=== PATIENT | female | born 1970 | race Caucasian/White ===

== ENCOUNTER 2019-10-08 12:51 | Emergency (ER) | payer SELFPAY ==
--- NOTE | 2019-10-08 13:54 | Emergency Department Report ---
Chief Complaint: Pain General Stated Complaint: PAIN ALL OVER/BODY PAIN Time Seen by Provider: 10/08/19 13:54 - HPI History of Present Illness: 48 y/o female with neuropathy moved here from [place] 3 months ago p/w 1) extremity pain 2) abd pain 3) left chest pressure llq tender labs ekg ua xr main side reassess MSE screening note: Focused history and physical exam performed. Due to findings the following was ordered: ED Disposition for MSE Condition: Stable
--- NOTE | 2019-10-08 14:40 | XRay Report ---
ABDOMINAL SERIES WITH CHEST X-RAY HISTORY: Abdominal pain, chest pain COMPARISON: None. FINDINGS: Single view of the chest is unremarkable. Heart and mediastinal structures appear normal. The lungs a re clear. Supine and upright views of the abdomen demonstrate amorphous calcifications overlying the expected p osition of the pancreas consistent with chronic pancreatitis. The bowel gas pattern is unremarkable. No evidence for dilated bowel, fluid levels or free air. IMPRESSION: Chronic pancreatitis. Signer Name: Haile Hadley Jr, MD Signed: 10/08/2019 2:35 PM Workstation Name: [id number]
[2019-10-08 17:02] LABS: Bilirubin,Urine NEG (Negative); Blood,Urine NEG (Negative); Color,Urine Yellow (Yellow); Mucus,Urine FEW /HPF; Urobilinogen,Urine < 2.0 mg/dL (<2.0); WBC,Urine < 1.0 /HPF (0.0-6.0)
[2019-10-08 17:41] LABS: Hematocrit 42.6 % (30.3-42.9); Hemoglobin 14.2 gm/dl (10.1-14.3); Mean Corpuscular HGB Conc 33 % (30-34); Mean Corpuscular Volume 93 fl (79-97); Platelet Count 165 K/mm3 (140-440); Red Blood Count 4.57 M/mm3 (3.65-5.03); Red Cell Distribution Width 13.4 % (13.2-15.2)
[2019-10-08 17:53] LABS: INR 1.13 (0.87-1.13)
[2019-10-08 18:05] LABS: Alanine Aminotransferase 73 units/L (7-56); Albumin 4.1 g/dL (3.9-5); BUN/Creatinine Ratio 16; Blood Urea Nitrogen 8 mg/dL (7-17); Calcium 10.7 mg/dL (8.4-10.2); Hemolysis Index 10
[2019-10-08] MEDS ORDERED: SODIUM CHLORIDE 0.9% 1000 ML 1,000 ML IV ONE ×2 (21:30→21:32)
--- NOTE | 2019-10-08 21:47 | Emergency Department Report ---
ED General Adult HPI - General Chief complaint: Pain General Stated complaint: PAIN ALL OVER/BODY PAIN Time Seen by Provider: 10/08/19 21:40 Source: patient Mode of arrival: Ambulatory Limitations: Language Barrier - History of Present Illness Initial comments: Patient is a 48-year-old female that presents to emergency with complaints of generalized body pain. Patient states that she's had diabetic neuropathy for years. Patient states that her neuropathy is worsening. Patient states she is not seeing a doctor for her diabetes because she just moved here from [place]. Patient states she feels like her blood glucose is high. Patient states that she is having increased urination. -: Gradual, week(s) (2 weeks) Location: upper extremity, lower extremity Radiation: non-radiation Severity scale (0 -10): 10 Quality: burning Consistency: constant Improves with: rest Worsens with: movement Associated Symptoms: malaise, weakness. denies: confusion, chest pain, cough, diaphoresis, fever/chills, headaches, loss of appetite, nausea/vomiting, rash, seizure, shortness of breath, syncope - Related Data Previous Rx's Medication Instructions Recorded Last Taken Type HYDROcodone/APAP 5-325 [Aurora 1 each PO Q4HR PRN #10 tablet 10/08/19 Unknown Rx 5/325] Allergies Allergy/AdvReac Type Severity Reaction Status Date / Time No Known Allergies Allergy Unverified 10/08/19 13:55 ED Review of Systems ROS: Stated complaint: PAIN ALL OVER/BODY PAIN Other details as noted in HPI Constitutional: malaise, weakness. denies: chills, fever Eyes: denies: eye pain, eye discharge, vision change ENT: denies: ear pain, throat pain Respiratory: denies: cough, shortness of breath, wheezing Cardiovascular: denies: chest pain, palpitations Endocrine: no symptoms reported Gastrointestinal: denies: abdominal pain, nausea, diarrhea Genitourinary: denies: urgency, dysuria, discharge Musculoskeletal: denies: back pain, joint swelling, arthralgia Skin: denies: rash, lesions Neurological: weakness. denies: headache, paresthesias Psychiatric: denies: anxiety, depression Hematological/Lymphatic: denies: easy bleeding, easy bruising ED Past Medical Hx - Past Medical History Previous Medical History?: Yes Hx Diabetes: Yes Additional medical history: neuropathy - Surgical History Past Surgical History?: No - Family History Family history: no significant - Social History Smoking Status: Current Every Day Smoker Substance Use Type: None - Medications Home Medications: Home Medications Medication Instructions Recorded Confirmed Last Taken Type HYDROcodone/APAP 5-325 [Aurora 1 each PO Q4HR PRN #10 tablet 10/08/19 Unknown Rx 5/325] ED Physical Exam - General Limitations: No Limitations General appearance: alert, in no apparent distress - Head Head exam: Present: atraumatic, normocephalic - Eye Eye exam: Present: normal appearance, PERRL Pupils: Present: normal accommodation - ENT ENT exam: Present: mucous membranes moist - Neck Neck exam: Present: normal inspection - Respiratory Respiratory exam: Present: normal lung sounds bilaterally. Absent: respiratory distress, wheezes, rales - Cardiovascular Cardiovascular Exam: Present: regular rate, normal rhythm. Absent: systolic murmur, diastolic murmur, rubs, gallop - GI/Abdominal GI/Abdominal exam: Present: soft, normal bowel sounds. Absent: distended, tenderness, guarding - Rectal Rectal exam: Present: deferred - Extremities Exam Extremities exam: Present: normal inspection - Back Exam Back exam: Present: normal inspection - Neurological Exam Neurological exam: Present: alert, oriented X3 - Psychiatric Psychiatric exam: Present: normal affect, normal mood - Skin Skin exam: Present: warm, dry, intact, normal color. Absent: rash ED Course Vital Signs 10/08/19 10/08/19 10/08/19 13:51 18:40 22:00 Temperature 97.7 F Pulse Rate 76 99 H 67 Respiratory 18 14 Rate Blood Pressure 121/82 Blood Pressure 117/80 118/78 [Right] O2 Sat by Pulse 100 100 Oximetry 10/08/19 10/08/19 22:05 23:50 Temperature Pulse Rate 68 Respiratory 14 18 Rate Blood Pressure Blood Pressure 127/81 [Right] O2 Sat by Pulse 100 99 Oximetry - Reevaluation(s) Reevaluation #1: Patient examined with nurse in the room, Nurse Reese. Patient will be given fluids and pain meds. 10/08/19 21:40 Reevaluation #2: Patient states she is feeling better. Patient states her pain has improved. Patient's blood sugar still elevated. Patient was given insulin and we will recheck the blood sugar. 10/08/19 23:00 Reevaluation #3: I discussed all results with patient. Patient denies weakness. Patient stable for discharge. I discussed plan of care the patient. Patient agrees with plan of care. I discussed discharge instructions with patient. Patient voiced understanding of discharge instructions. 10/08/19 23:50 ED Medical Decision Making - Lab Data Result diagrams: 10/08/19 17:17 10/08/19 17:17 - EKG Data -: EKG Interpreted by Me EKG shows normal: sinus rhythm, axis, intervals, QRS complexes, ST-T waves Rate: normal - Radiology Data Radiology results: report reviewed ABDOMINAL SERIES WITH CHEST X-RAY HISTORY: Abdominal pain, chest pain COMPARISON: None. FINDINGS: Single view of the chest is unremarkable. Heart and mediastinal structures appear normal. The lungs are clear. Supine and upright views of the abdomen demonstrate amorphous calcifications overlying the expected position of the pancreas consistent with chronic pancreatitis. The bowel gas pattern is unremarkable. No evidence for dilated bowel, fluid levels or free air. IMPRESSION: Chronic pancreatitis. - Medical Decision Making Patient is a 48-year-old female that presents with complaints of weakness, increased urination and neuropathy pain. Patient has a history of diabetic neuropathy. Patient and her pain improved. Patient given Aurora prescription. Patient labs are consistent with hyperglycemia and pseudohyponatremia. Patient given fluids in the ER. Patient's weakness resolved with fluids. Patient stable for discharge. Patient discharged home. Patient will follow up with an merchandising execution manager, primary care and a neurologist for her neuropathy. - Differential Diagnosis neuropathy, hyperglycemia, uncontrolled diabetes, weakness. Critical care attestation.: If time is entered above; I have spent that time in minutes in the direct care of this critically ill patient, excluding procedure time. ED Disposition Clinical Impression: Weakness Hyperglycemia due to type 2 diabetes mellitus Qualifiers: Diabetes mellitus manager intermediate insulin use: with assisted use Qualified Code(s): E11.65 - Type 2 diabetes mellitus with hyperglycemia Diabetic neuropathy Qualifiers: Diabetes mellitus type: type 2 Diabetes mellitus complication detail: with other neurological complication Qualified Code(s): E11.49 - Type 2 diabetes mellitus with other diabetic neurological complication Disposition: -01 TO HOME OR SELFCARE Is pt being admited?: No Does the pt Need Aspirin: No Condition: Stable Instructions: How to Check Your Blood Sugar (ED), Diabetic Foot Care (ED), Di abetes Mellitus Type 2 in Adults (ED), Diabetic Neuropathy (ED) Additional Instructions: Patient to follow up with primary care in 2-3 days. Patient to follow up with merchandising execution manager in 2-3 days. Patient to follow up with neurologist in 2-3 days. Patient to return to ER if condition worsens, changes or new symptoms arise. Patient to rest. Patient to increase water. Patient eat a diabetic diet. Patient to take insulin as instructed. Patient to monitor blood sugar and keep a log. Patient to take her blood sugar log to her follow-up appointments. Patient to take Tylenol or ibuprofen when necessary for pain. Prescriptions: HYDROcodone/APAP 5-325 [Aurora 5/325] 1 each PO Q4HR PRN #10 tablet PRN Reason: Pain Referrals: PRIMARY MD DANIEL [Primary Care Provider] - 2-3 Days FELI ARIAS MD [Staff Physician] - 2-3 Days CARLA ORTEGA MD [Staff Physician] - 2-3 Days Time of Disposition: 23:04 Print Language: INDONESIAN - Assessment Assessment Interval: Baseline - Level of Consciousness 1a. Level of Consciousness: alert/keenly responsive - LOC Questions 1b. LOC Questions: answers both correctly - LOC Command 1c. LOC Commands: performs tasks correctly - Best Gaze 2. Best Gaze: normal - Visual 3. Visual: no visual loss - Facial Palsy 4. Facial Palsy: normal symmetrical movement - Motor Arm 5a. Motor Arm Left: no drift 5b. Motor Arm Right: no drift - Motor Leg 6a. Motor Leg Left: no drift 6b. Motor Leg Right: no drift - Limb Ataxia 7. Limb Ataxia: absent - Sensory 8. Sensory: normal - Best Language 9. Best Language: no aphasia - Dysarthria 10. Dysarthria: normal - Extinction and Inattention 11. Extinction/Inattention: no abnormality - Scoring Total Score: 0 Stroke Severity: No Stroke Symptoms
[2019-10-08] MEDS ORDERED: MORPHINE 2 MG/1 ML INJ IV ONE (21:49)
[2019-10-08] MEDS ORDERED: INSULIN REGULAR, HUMAN 100 UNITS/1 ML IV ONE (23:17)
[2019-10-08 23:57] VITALS: BP 127/81
== END 2019-10-08 23:50 | disposition home or self-care (01) ==
LOC: ED 12:51
DX: E11.65 Type 2 diabetes mellitus with hyperglycemia (principal); E11.49 Type 2 diabetes mellitus with other diabetic neurological complication; F17.200 Nicotine dependence, unspecified, uncomplicated
CPT/HCPCS: 36415; 74022; 80048; 80053; 81001; 82550; 82805; 82962; 83735; 84484; 85027; 85610; 93005; 93010; 96361; 96374; 96375; 99284; J2270; J7030; J1815

== ENCOUNTER 2019-11-09 19:58 | Emergency (ER) | payer SELFPAY ==
[2019-11-09 20:37] LABS: Hematocrit 41.4 % (30.3-42.9); Hemoglobin 13.9 gm/dl (10.1-14.3); Mean Corpuscular HGB Conc 34 % (30-34); Mean Corpuscular Volume 94 fl (79-97); Platelet Count 142 K/mm3 (140-440); Red Blood Count 4.42 M/mm3 (3.65-5.03); Red Cell Distribution Width 13.3 % (13.2-15.2)
[2019-11-09 20:56] LABS: Alanine Aminotransferase 115 units/L (7-56); Albumin 4.2 g/dL (3.9-5); BUN/Creatinine Ratio 27; Blood Urea Nitrogen 19 mg/dL (7-17); Hemolysis Index 10
[2019-11-09 21:41] LABS: Bilirubin,Urine NEG (Negative); Blood,Urine NEG (Negative); Color,Urine Straw (Yellow); Urobilinogen,Urine < 2.0 mg/dL (<2.0)
[2019-11-09] MEDS ORDERED: SODIUM CHLORIDE 0.9% 1000 ML 1,000 ML ONE (22:04)
[2019-11-09] MEDS ORDERED: INSULIN REGULAR, HUMAN 100 UNITS/1 ML IV ONE (22:20)
[2019-11-09] MEDS ORDERED: ACETAMINOPHEN 325 MG TAB PO STA (22:20)
[2019-11-09] MEDS ORDERED: KETOROLAC 30 MG/1 ML INJ IV ONE (22:20)
[2019-11-09] MEDS ORDERED: SODIUM CHLORIDE 0.9% 1000 ML 2,000 ML IV ONE (22:20)
--- NOTE | 2019-11-09 22:22 | Emergency Department Report ---
ED General Adult HPI - General Chief complaint: Hyperglycemia Stated complaint: BLOOD SUGAR/BOTH LEG PAIN Time Seen by Provider: 11/09/19 22:03 Source: patient, RN notes reviewed, old records reviewed Mode of arrival: Ambulatory Limitations: Language Barrier - History of Present Illness Initial comments: This provider is conversant in Ukrainian The patient is a 48-year-old female with a history of diabetes, for 23 years, reportedly on insulin 70/30, also with a history of diabetic neuropathy, was seen in this hospital last month for diabetic neuropathy pain, and hyperglycemia. She presents to the ER today with 3 to 4 days of body pain, particularly in the legs, polyuria, polydipsia, malaise and fatigue. No fever, positive nausea, no vomiting, positive dry cough, no dysuria, no fever, no report of exertional shortness of breath, no report of chest pain She indicates her extremity pain is constant, increases with palpation, decreases with rest and with morphine. It is unclear if she has taken [id number] analgesics for this. -: Gradual, days(s) Location: left, right, lower extremity Severity scale (0 -10): 0 Quality: other Consistency: other Improves with: other Worsens with: other Associated Symptoms: other - Related Data Allergies Allergy/AdvReac Type Severity Reaction Status Date / Time No Known Allergies Allergy Unverified 10/08/19 13:55 ED Review of Systems ROS: Stated complaint: BLOOD SUGAR/BOTH LEG PAIN Other details as noted in HPI Constitutional: denies: fever Eyes: as per HPI ENT: as per HPI Respiratory: cough Cardiovascular: as per HPI. denies: syncope Gastrointestinal: nausea. 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 Absent: nystagmus - ENT ENT exam: Present: normal exam, normal orophraynx, mucous membranes moist, normal external ear exam - Neck Neck exam: Present: normal inspection, full ROM. Absent: tenderness, meningismus - Respiratory Respiratory exam: Present: normal lung sounds bilaterally. Absent: respiratory distress - Cardiovascular Cardiovascular Exam: Present: regular rate, normal rhythm, normal heart sounds. Absent: bradycardia, tachycardia, irregular rhythm, systolic murmur, diastolic murmur, rubs, gallop - GI/Abdominal GI/Abdominal exam: Present: soft. Absent: distended, tenderness, guarding, tess ound, rigid, pulsatile mass - Extremities Exam Extremities exam: Present: normal inspection, full ROM, tenderness, other (2+ pulses noted in the bilatera upper and lower extremities. There is no redness, pus or streaking. There is no long bony tenderness in the upper or lower extremities. However, there is mild diffuse lower extremity muscular tenderness, predominantly distal to the knees. There is full range of motion in the bilateral hips, knees and ankles.). Absent: calf tenderness - Back Exam Back exam: Present: normal inspection, full ROM. Absent: tenderness, CVA tenderness (R), CVA tenderness (L), paraspinal tenderness, vertebral tenderness - Neurological Exam Neurological exam: Present: alert, other (There is no facial droop. The tongue is midline. Extraocular movements are intact bilaterally. There is 5 out of 5 strength in bilateral upper and lower extremities. Sensation is intact to light touch bilateral upper and lower extremities. ) - Psychiatric Psychiatric exam: Present: anxious - Skin Skin exam: Present: warm, dry, intact, normal color. Absent: rash ED Course Vital Signs 11/09/19 11/09/19 11/09/19 20:07 22:05 22:35 Temperature 98.3 F 98.5 F Pulse Rate 91 H 61 Respiratory 18 15 15 Rate Blood Pressure 118/86 Blood Pressure 123/79 [Right] O2 Sat by Pulse 98 98 Oximetry - Reevaluation(s) Reevaluation #1: 11/09/19 22:51 Differential diagnosis, including but not limited to: Hyperglycemia, diabetic neuropathy Assessment and plan: 48-year-old female who moved here from [place] approximately 5 months ago, reports that she does not have a primary care doctor, presenting with 2 complaints, identical to her presentation last month Complaint #1, diabetic neuropathy pain: Her examination is not consistent with cellulitis, fracture, dislocation, myositis, compartment syndrome, or arterial insufficiency. Her extremity complaints does not represent an emergency medical condition at this time. She requested morphine for her pain. Explained to the patient that Tylenol and ibuprofen are acceptable alternatives at this time. She will need to follow-up with an outpatient primary care doctor. She will also be given outpatient resources for better glycemic control. She is apparently been a diabetic for 23 years. Complaint #2, hyperglycemia: She is hyperglycemic without anion gap. Venous pH reviewed and appreciated, however, with anion gap of 17, does not meet criteria at this time for initiation of insulin drip. Transaminitis chronic. Hyperglycemia chronic, hypercalcemia also chronic. We will treat her with fluids, insulin, and repeat basic metabolic panel. She was instructed that she will need to follow-up with an outpatient local primary care doctor for long- term longitudinal management and care. 11/09/19 22:52 Reevaluation #2: 11/10/19 01:33 Patient observed for hours without clinical decompensation. Repeat basic metabolic panel shows improvement in pseudohyponatremia, hypercalcemia, and hyperglycemia. The patient will need to follow-up with an outpatient primary care doctor. At the moment, she does not have an emergent medical condition. ED Medical Decision Making - Lab Data Result diagrams: 11/09/19 20:16 11/10/19 00:18 Vital Signs 11/09/19 11/09/19 11/09/19 20:07 22:05 22:35 Temperature 98.3 F 98.5 F Pulse Rate 91 H 61 Respiratory 18 15 15 Rate Blood Pressure 118/86 Blood Pressure 123/79 [Right] O2 Sat by Pulse 98 98 Oximetry Lab Results 11/09/19 11/09/19 11/09/19 Range/Units 20:16 20:16 20:16 WBC 5.2 (4.5-11.0) K/mm3 RBC 4.42 (3.65-5.03) M/mm3 Hgb 13.9 (10.1-14.3) gm/dl Hct 41.4 (30.3-42.9) % MCV 94 (79-97) fl MCH 32 (28-32) pg MCHC 34 (30-34) % RDW 13.3 (13.2-15.2) % Plt Count 142 (140-440) K/mm3 VBG pH 7.311 L (7.320-7.420) Sodium 126 L (137-145) mmol/L Potassium 4.2 (3.6-5.0) mmol/L Chloride 87.0 L (98-107) mmol/L Carbon Dioxide 26 (22-30) mmol/L Anion Gap 17 mmol/L BUN 19 H (7-17) mg/dL Creatinine 0.7 (0.7-1.2) mg/dL Estimated GFR > 60 ml/min BUN/Creatinine Ratio 27 % Glucose 503 H* (65-100) mg/dL POC Glucose (70-105) Calcium 11.0 H (8.4-10.2) mg/dL Total Bilirubin 0.30 (0.1-1.2) mg/dL AST 62 H (5-40) units/L ALT 115 H (7-56) units/L Alkaline Phosphatase 128 (35-129) units/L Total Protein 8.8 H (6.3-8.2) g/dL Albumin 4.2 (3.9-5) g/dL Albumin/Globulin Ratio 0.9 % Urine Color (Yellow) Urine Turbidity (Clear) Urine pH (5.0-7.0) Ur Specific [place] (1.003-1.030) Urine Protein (Negative) mg/dL Urine Glucose (UA) (Negative) mg/dL Urine Ketones (Negative) mg/dL Urine Blood (Negative) Urine Nitrite (Negative) Urine Bilirubin (Negative) Urine Urobilinogen (<2.0) mg/dL Ur Leukocyte Esterase (Negative) Urine WBC (Auto) (0.0-6.0) /HPF Urine RBC (Auto) (0.0-6.0) /HPF U Epithel Cells (Auto) (0-13.0) /HPF 11/09/19 11/09/19 Range/Units 20:17 21:29 WBC (4.5-11.0) K/mm3 RBC (3.65-5.03) M/mm3 Hgb (10.1-14.3) gm/dl Hct (30.3-42.9) % MCV (79-97) fl MCH (28-32) pg MCHC (30-34) % RDW (13.2-15.2) % Plt Count (140-440) K/mm3 VBG pH (7.320-7.420) Sodium (137-145) mmol/L Potassium (3.6-5.0) mmol/L Chloride (98-107) mmol/L Carbon Dioxide (22-30) mmol/L Anion Gap mmol/L BUN (7-17) mg/dL Creatinine (0.7-1.2) mg/dL Estimated GFR ml/min BUN/Creatinine Ratio % Glucose (65-100) mg/dL POC Glucose 415 H (70-105) Calcium (8.4-10.2) mg/dL Total Bilirubin (0.1-1.2) mg/dL AST (5-40) units/L ALT (7-56) units/L Alkaline Phosphatase (35-129) units/L Total Protein (6.3-8.2) g/dL Albumin (3.9-5) g/dL Albumin/Globulin Ratio % Urine Color Straw (Yellow) Urine Turbidity Clear (Clear) Urine pH 5.0 (5.0-7.0) Ur Specific [place] 1.029 (1.003-1.030) Urine Protein 30 mg/dl (Negative) mg/dL Urine Glucose (UA) >=500 (Negative) mg/dL Urine Ketones Neg (Negative) mg/dL Urine Blood Neg (Negative) Urine Nitrite Neg (Negative) Urine Bilirubin Neg (Negative) Urine Urobilinogen < 2.0 (<2.0) mg/dL Ur Leukocyte Esterase Neg (Negative) Urine WBC (Auto) 1.0 (0.0-6.0) /HPF Urine RBC (Auto) 2.0 (0.0-6.0) /HPF U Epithel Cells (Auto) 1.0 (0-13.0) /HPF Sodium 126 consistent with pseudohyponatremia Critical Care Time: Yes Critical care time in (mins) excluding proc time.: 35 Critical care attestation.: If time is entered above; I have spent that time in minutes in the direct care of this critically ill patient, excluding procedure time. ED Disposition Clinical Impression: Diabetic neuropathy, Hyperglycemia Disposition: DC-01 TO HOME OR SELFCARE Is pt being admited?: No Does the pt Need Aspirin: No Condition: Stable Instructions: Diabetes Mellitus Type 2 in Adults (ED), Meal Planning with Diabetes Exchanges (DC) Additional Instructions: Please continue current outpatient diabetic medications. Avoid consumption of sugar, and simple carbohydrates. Patient may take Tylenol [id number], 500 mg by mouth, every 6 hours as needed for pain, alternating with ibuprofen, 400 mg by mouth, every 6 hours, with food, as needed for pain. Recommend that patient drink 4 to 6 cups of water per day. Recommend that patient avoid consumption of sugary drinks, simple carbohydrates. Patient may reference the [place] [employer] website for further recommendations on how she may manage a diabetic diet. It is very important that the patient follow-up with an outpatient primary care doctor within the next 4 weeks. Patient was found to have multiple incidental nonemergent laboratory findings which need follow-up, including nonspecific elevation in liver function test, and nonspecific elevation in calcium. Please follow-up with any of the local primary care doctors that have been listed for the patient's convenience. Please return to the emergency room right away with new, worsened or different symptoms, or symptoms not present on the initial emergency room evaluation. Recommend that patient avoid consumption of alcohol. Contine con los medicamentos actuales para diabticos para pacientes ambulatori os. Evite el consumo de azcar y carbohidratos simples. El paciente puede alia Tylenol sin receta, 500 mg por va oral, cada 6 horas segn sea necesario para el dolor, alternando con ibuprofeno, 400 mg por va oral, cada 6 horas, con alimentos, segn sea necesario para el dolor. Recomiende que el paciente tome de 4 a 6 tazas de agua por da. Recomiende que el paciente evite el consumo de bebidas azucaradas, carbohidratos simples. La paciente puede consultar el sitio web de la [place] [employer] para obtener ms recomendaciones sobre cad operator puede manejar alec dieta para diabticos. Es muy importante que el paciente cristal un seguimiento con un mdico de atencin primaria ambulatorio dentro de las prximas 4 semanas. Se encontr que el paciente smita mltiples hallazgos de laboratorio incidentales no urgentes que necesitan seguimiento, incluida la elevacin inespecfica en la prueba de funcin heptica y la elevacin inespecfica de calcio. Realice un seguimiento con cualquiera de los mdicos de atencin primaria locales que se hayan incluido para conveniencia del paciente. Regrese a la claudia de emergencias de inmediato con sntomas nuevos, empeorados o diferentes, o sntomas que no estn presentes en la evaluacin inicial de la claudia de emergencias. no tome cervezas Referrals: PRIMARY CARE, [Primary Care Provider] - 3-5 Days BREANNE MADDEN MD [Staff Physician] - 3-5 Days [facility] [Provider Group] - 3-5 Days [facility] [Provider Group] - 3-5 Days Print Language: ARMENIAN
[2019-11-10 00:56] LABS: BUN/Creatinine Ratio 30; Blood Urea Nitrogen 15 mg/dL (7-17); Calcium 9.8 mg/dL (8.4-10.2); Hemolysis Index 4
[2019-11-10 02:07] VITALS: BP 130/83
== END 2019-11-10 02:37 | disposition home or self-care (01) ==
LOC: ED 19:58
DX: E11.40 Type 2 diabetes mellitus with diabetic neuropathy, unspecified (principal); E11.65 Type 2 diabetes mellitus with hyperglycemia; F17.200 Nicotine dependence, unspecified, uncomplicated
CPT/HCPCS: 36415; 80048; 80053; 81001; 82550; 82805; 82962; 83735; 85027; 96374; 96375; 99284; J1885; J7030; J1815

== ENCOUNTER 2019-11-10 15:11 | Emergency (ER) | payer SELFPAY ==
--- NOTE | 2019-11-10 15:36 | Emergency Department Report ---
Blank Doc - Documentation Documentation: 48-year-old female that presents with uncontrolled hyperglycemia, body aches, weakness. This initial assessment/diagnostic orders/clinical plan/treatment(s) is/are subject to change based on patient's health status, clinical progression and re- assessment by fellow clinical providers in the ED. Further treatment and workup at subsequent clinical providers discretion. Patient/guardians urged not to elope from the ED as their condition may be serious if not clinically assessed and managed. Initial orders include: 1- Patient sent to MAIN ED for further evaluation and treatment 2- labs 3- UA
[2019-11-10 16:20] LABS: BUN/Creatinine Ratio 24; Blood Urea Nitrogen 12 mg/dL (7-17); Calcium 10.2 mg/dL (8.4-10.2); Hemolysis Index 7
[2019-11-10 16:40] LABS: Basophils % (Auto) 0.4 % (0.0-1.8); Eosinophils % (Auto) 0.2 % (0.0-4.3); Hematocrit 36.8 % (30.3-42.9); Hemoglobin 12.4 gm/dl (10.1-14.3); Lymphocytes # (Auto) 1.7 K/mm3 (1.2-5.4); Mean Corpuscular HGB Conc 34 % (30-34); Mean Corpuscular Volume 93 fl (79-97); Monocytes # (Auto) 0.4 K/mm3 (0.0-0.8); Platelet Count 121 K/mm3 (140-440); Red Blood Count 3.94 M/mm3 (3.65-5.03); Red Cell Distribution Width 13.4 % (13.2-15.2)
[2019-11-10 18:56] LABS: Bilirubin,Urine NEG (Negative); Blood,Urine NEG (Negative); Color,Urine Straw (Yellow); Protein,Urine <15 mg/dL mg/dL (Negative); Urobilinogen,Urine < 2.0 mg/dL (<2.0)
[2019-11-10] MEDS ORDERED: INSULIN REGULAR, HUMAN 100 UNITS/1 ML SUB-Q ONE (23:32)
--- NOTE | 2019-11-10 23:38 | Emergency Department Report ---
ED General Adult HPI - General Chief complaint: Hyperglycemia Stated complaint: MED EVAL Time Seen by Provider: 11/10/19 15:32 Source: patient Mode of arrival: Ambulatory Limitations: No Limitations - History of Present Illness Initial comments: Patient is 48 years old female with history of diabetes followed by [facility]. Patient presented to the ER complaining of generalized body pain and hyperglycemia. Patient is noncompliant with her medication because she did not have money for that. Patient denies any chest pain, shortness of breath, nausea or vomiting. Patient described her pain as numbness and tingling sensation sometimes in all extremities especially bilateral lower extremities. Severity scale (0 -10): 9 - Related Data Previous Rx's Medication Instructions Recorded Last Taken Type Insulin Aspart Prot/Insuln Asp 10 unit SQ TID #5 pen 11/10/19 Unknown Rx [Novolog Mix 70-30 Flexpen] Allergies Allergy/AdvReac Type Severity Reaction Status Date / Time cyclobenzaprine Allergy Unknown Verified 11/10/19 15:40 [facility] ED Review of Systems ROS: Stated complaint: MED EVAL Other details as noted in HPI Comment: All other systems reviewed and negative Constitutional: denies: chills, fever Respiratory: denies: cough, shortness of breath, SOB with exertion, wheezing Cardiovascular: denies: chest pain, palpitations Gastrointestinal: denies: abdominal pain Musculoskeletal: back pain, arthralgia, myalgia ED Past Medical Hx - Past Medical History Previous Medical History?: Yes Hx Diabetes: Yes Additional medical history: neuropathy - Social History Smoking Status: Never Smoker Substance Use Type: None - Medications Home Medications: Home Medications Medication Instructions Recorded Confirmed Last Taken Type Insulin Aspart Prot/Insuln Asp 10 unit SQ TID #5 pen 11/10/19 Unknown Rx [Novolog Mix 70-30 Flexpen] ED Physical Exam - General Limitations: No Limitations General appearance: alert, in no apparent distress - Head Head exam: Present: atraumatic, normocephalic, normal inspection - Eye Eye exam: Present: normal appearance - ENT ENT exam: Present: normal exam, normal orophraynx, mucous membranes moist - Neck Neck exam: Present: normal inspection, full ROM. Absent: tenderness, meningismus, lymphadenopathy, thyromegaly - Respiratory Respiratory exam: Present: normal lung sounds bilaterally - Cardiovascular Cardiovascular Exam: Present: regular rate, normal rhythm, normal heart sounds - GI/Abdominal GI/Abdominal exam: Present: soft, normal bowel sounds. Absent: distended, te nderness, guarding, rebound, rigid, organomegaly, mass, bruit, pulsatile mass, hernia - Extremities Exam Extremities exam: Present: normal inspection, full ROM, normal capillary refill. Absent: tenderness, pedal edema, calf tenderness - Back Exam Back exam: Present: normal inspection, full ROM. Absent: CVA tenderness (R), CVA tenderness (L) - Neurological Exam Neurological exam: Present: alert, oriented X3, CN II-XII intact, normal gait, reflexes normal - Psychiatric Psychiatric exam: Present: normal mood. Absent: depressed, agitated, anxious, homicidal ideation, suicidal ideation - Skin Skin exam: Present: warm, intact, normal color ED Course Vital Signs 11/10/19 11/10/19 11/11/19 15:37 23:21 00:30 Temperature 98.4 F 98.3 F Pulse Rate 75 72 79 Respiratory 18 16 18 Rate Blood Pressure 128/79 123/82 Blood Pressure 122/84 [Right] O2 Sat by Pulse 100 100 Oximetry ED Medical Decision Making - Lab Data Result diagrams: 11/10/19 15:50 11/10/19 15:50 - Medical Decision Making Patient is 48 years old female with history of diabetes followed by [facility]. Patient presented to the ER complaining of generalized body pain and hyperglycemia. Patient is noncompliant with her medication because she did not have money for that. Patient denies any chest pain, shortness of breath, nausea or vomiting. Patient described her pain as numbness and tingling sensation sometimes in all extremities especially bilateral lower extremities. Patient received insulin 5 units subcu. Blood glucose improved to, patient kept asking for morphine however patient given gabapentin 100 mg p.o. Labs reviewed and showed elevated blood sugar however there is no evidence of DKA, no ketonuria. Patient stated that she has an appointment today with her primary care physician. Patient given prescription for gabapentin and advised to return to the ER if she develop any new symptoms. Critical care attestation.: If time is entered above; I have spent that time in minutes in the direct care o f this critically ill patient, excluding procedure time. ED Disposition Clinical Impression: Diabetic neuropathy, Acute hyperglycemia Disposition: - TO HOME OR SELFCARE Is pt being admited?: No Condition: Stable Instructions: Diabetes Mellitus Type 2 in Adults (ED), Diabetic Neuropathy (ED) Referrals: PRIMARY CARE,MD [Primary Care Provider] - 3-5 Days
[2019-11-11] MEDS ORDERED: GABAPENTIN 100 MG CAP PO ONE (00:10)
[2019-11-11 00:30] VITALS: BP 122/84
== END 2019-11-11 01:20 | disposition left against medical advice (07) ==
LOC: ED 15:11
DX: E11.40 Type 2 diabetes mellitus with diabetic neuropathy, unspecified (principal); E11.65 Type 2 diabetes mellitus with hyperglycemia; Z79.4 Long term (current) use of insulin; Z88.2 Allergy status to sulfonamides
CPT/HCPCS: 36415; 80048; 81001; 82805; 82962; 85025; 96372; 99283; J1815

== ENCOUNTER 2020-05-07 12:21 | Emergency (ER) | payer SELFPAY ==
[2020-05-07] MEDS ORDERED: KETOROLAC 60 MG/2 ML INJ IM ONE (14:01)
--- NOTE | 2020-05-07 14:01 | Emergency Department Report ---
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 Patient states for the past 3 days she has had increased pain but more so in her legs. She states she typically takes gabapentin 100 TID but states its not helping. She denies any injury, or strenous activity. She reports no leg swelling, redness, bruising, CP or sob. She also complains that she has not sleeping well for the past few nights. She states she has been out of her trazadone 150mg QHS and her Zoloft 50mg for the past week and since then she has not been sleeping well. She states she currently does not have a PCP because she recently moved from [place]. She reports no SI/HI or hallucinations. She denies any other symptoms at this time. MD Complaint: Body aches/Insomnia -: days(s) - Related Data Previous Rx's Medication Instructions Recorded Last Taken Type Insulin Aspart Prot/Insuln Asp 10 unit SQ TID #5 pen 11/10/19 Unknown Rx [Novolog Mix 70-30 Flexpen] Gabapentin 300 mg PO BID #60 cap 05/07/20 Unknown Rx Sertraline [Zoloft] 50 mg PO QDAY #30 tablet 05/07/20 Unknown Rx Trazodone HCl [traZODone] 150 mg PO QHS #15 tab 05/07/20 Unknown Rx Allergies Allergy/AdvReac Type Severity Reaction Status Date / Time cyclobenzaprine Allergy Unknown Verified 11/10/19 15:40 [From Flexeril] ED Review of Systems ROS: Stated complaint: BODYACHE Other details as noted in HPI Comment: All other systems reviewed and negative Constitutional: denies: chills, fever ENT: denies: ear pain, throat pain Respiratory: denies: cough, shortness of breath, wheezing Cardiovascular: denies: chest pain, palpitations Gastrointestinal: denies: abdominal pain, nausea, diarrhea Genitourinary: denies: urgency, dysuria, discharge Musculoskeletal: arthralgia, myalgia. denies: joint swelling Psychiatric: other (insomnia). denies: auditory hallucinations, visual hallucinations, homicidal thoughts, suicidal thoughts ED Past Medical Hx - Past Medical History Previous Medical History?: Yes Hx Diabetes: Yes Hx Psychiatric Treatment: Yes (anxiety depression) Additional medical history: neuropathy - Surgical History Past Surgical History?: No - Social History Smoking Status: Never Smoker Substance Use Type: None - Medications Home Medications: Home Medications Medication Instructions Recorded Confirmed Last Taken Type Insulin Aspart Prot/Insuln Asp 10 unit SQ TID #5 pen 11/10/19 Unknown Rx [Novolog Mix 70-30 Flexpen] Gabapentin 300 mg PO BID #60 cap 05/07/20 Unknown Rx Sertraline [Zoloft] 50 mg PO QDAY #30 tablet 05/07/20 Unknown Rx Trazodone HCl [traZODone] 150 mg PO QHS #15 tab 05/07/20 Unknown Rx ED Physical Exam - General Limitations: No Limitations General appearance: alert, in no apparent distress - Eye Eye exam: Present: normal appearance - ENT ENT exam: Present: mucous membranes moist - Neck Neck exam: Present: normal inspection, full ROM - Respiratory Respiratory exam: Present: normal lung sounds bilaterally - Cardiovascular Cardiovascular Exam: Present: regular rate, normal rhythm, normal heart sounds - GI/Abdominal GI/Abdominal exam: Present: soft. Absent: distended, tenderness - Extremities Exam Extremities exam: Present: normal inspection, full ROM, tenderness (diffuse ttp along both lower extremities. ), normal capillary refill. Absent: pedal edema, joint swelling - Back Exam Back exam: Present: normal inspection - Neurological Exam Neurological exam: Present: alert, oriented X3, CN II-XII intact, normal gait - Psychiatric Psychiatric exam: Present: normal affect, normal mood. Absent: homicidal ideation, suicidal ideation - Skin Skin exam: Present: intact ED Course Vital Signs 05/07/20 12:27 Temperature 97.6 F Pulse Rate 83 Respiratory 18 Rate Blood Pressure 111/81 [Left] O2 Sat by Pulse 99 Oximetry ED Medical Decision Making - Medical Decision Making [id number] -- Pt presented to ed c/o generalized pain, more so in her legs from her neuropathy and not being able to sleep well over past few days because she has been out of her meds. Pt is awake, alert, oriented x3, neurologically intact, appears well, not toxic, well hydrated and not in any severe distress. VS are stable. PE unremarkable. Work up not indicated at this time. No concern for infectious process, el ectrolyte abnl, DVT, dehydration or any other serious/emergent etiologies at this time. Pt will be given refills on her medications. Informed her that we can increase her gabapentin dose to help her pain. She will be given referral to local PCP whom she needs to f/u with. Patient expressed understanding of instructions and agrees with plan. Pt stable at time of d/c. Critical care attestation.: If time is entered above; I have spent that time in minutes in the direct care of this critically ill patient, excluding procedure time. ED Disposition Clinical Impression: Neuropathic pain, Insomnia, Medication refill Disposition: TO HOME OR SELFCARE Is pt being admited?: No Does the pt Need Aspirin: No Condition: Stable Instructions: Diabetic Neuropathy (ED), Insomnia (ED) Additional Instructions: I recommend you get your trazadone/zoloft filled and take it as prescribed. The gabapentin prescription given today is an increased dose, but you can finish what you have at home by taking 300mg (3 of the 100mg) twice per day. I recommend you follow up with local PCP given on discharge instructions for continuation of your care and continued medication refills. Return to ED if symptoms worsens or changes. Prescriptions: Trazodone HCl [traZODone] 150 mg PO QHS #15 tab Gabapentin 300 mg PO BID #60 cap Sertraline [Zoloft] 50 mg PO QDAY #30 tablet Referrals: CARRI SANCHEZ MD [Primary Care Provider] - 3-5 Days BREANNE MADDEN MD [Staff Physician] - 3-5 Days Time of Disposition: 14:14
[2020-05-07 15:02] VITALS: BP 114/76
== END 2020-05-07 15:01 | disposition home or self-care (01) ==
LOC: ED 12:21
DX: E11.42 Type 2 diabetes mellitus with diabetic polyneuropathy (principal); F03.90 Unspecified dementia, unspecified severity, without behavioral disturbance, psychotic disturbance, mood disturbance, and anxiety; F32.89 Other specified depressive episodes; F41.9 Anxiety disorder, unspecified; Z76.0 Encounter for issue of repeat prescription; Z79.4 Long term (current) use of insulin
CPT/HCPCS: 99282; J1885

== ENCOUNTER 2020-10-15 12:51 | Emergency (ER) | payer SELFPAY ==
[2020-10-15 13:07] VITALS: BP 133/88
--- NOTE | 2020-10-15 13:36 | Emergency Department Report ---
Chief Complaint: Extremity Injury, Upper Stated Complaint: BILATERAL HAND PAIN - HPI History of Present Illness: 29-year-old female from [place] presents to the emergency room complaining of bilateral hand pain and leg pain. Patient reports that she has a history of diabetes, depression, neuropathy. Patient states she has not been taking any of her medications. She states that she has been taking insulins just a little. Denies any recent trauma. - Exam Vital Signs: Vital Signs 10/15/20 13:05 Temperature 97.6 F Pulse Rate 67 Respiratory 16 Rate Blood Pressure 133/88 O2 Sat by Pulse 99 Oximetry Physical Exam: Gen: alert oriented NAD Cardic: regular rate and rhythm no murmurs appreciated Resp: Clear to auscultation bilateral no wheezing no rales or rhonchi. Abdomen: Soft nontender nondistended normal bowel sounds. Mini neuro: Normal finger to nose exam, [id number] normal, Romberg neg, strengh 4/5 all extrimities, Alert and oriented time 3 Crainal nerve II-IIX intact MSE screening note: Focused history and physical exam performed. Due to findings the following was ordered: 29-year-old female from [place] presents to the emergency room complaining of bilateral hand pain and leg pain. Patient reports that she has a history of diabetes, depression, neuropathy. Patient states she has not been taking any of her medications. She states that she has been taking insulins just a little. Denies any recent trauma. ED Disposition for MSE Clinical Impression: Arthritis, Neuropathy Disposition: Z-07 MED SCREENING EXAM-LEFT Is pt being admited?: No Does the pt Need Aspirin: No Condition: Stable Additional Instructions: Recommend ibuprofen or Tylenol for pain management. Follow-up with a primary care provider and specialist. Referrals: BREANNE MADDEN MD [Staff Physician] - 3-5 Days
== END 2020-10-15 13:55 | disposition left against medical advice (07) ==
LOC: ED 12:51
DX: M79.642 Pain in left hand (principal); Z53.21 Procedure and treatment not carried out due to patient leaving prior to being seen by health care provider

== ENCOUNTER 2021-10-04 11:04 | Emergency (ER) | payer SELFPAY ==
[2021-10-04 11:33] VITALS: BP 131/74
--- NOTE | 2021-10-04 13:06 | Emergency Department Report ---
ED Extremity Problem HPI - General Chief complaint: Upper Respiratory Infection Stated complaint: BODY PAIN,COUGHING Time Seen by Provider: 10/04/21 12:37 Source: patient Mode of arrival: Ambulatory Limitations: Language Barrier - History of Present Illness Initial comments: 50 year old female with a past medical history of diabetic neuropathy, diabetes, and anxiety depression presents to ED with complains of neuropathic pain to both her legs and needed refill on her medications. Patient states that she has been having pain to both lower legs, secondary to her neuropathy for a few years. She has been on gabapentin for the pain, but she states that the past 2 days its been more than typical. She moved here from [place] 2 years ago and has not established with a primary care doctor. She states that she got the gabapentin from when she was hospitalized at [facility] for anxiety and depression. She reports no injury to her legs, swelling, skin coloration, weakness, chest pain, shortness of breath, fever chills or any additional symptoms at this time. Patient is also requesting refill on her trazodone and Zoloft. MD Complaint: extremity pain -: year(s) - Related Data Previous Rx's Medication Instructions Recorded Last Taken Type Insulin Aspart Prot/Insuln Asp 10 unit SQ TID #5 pen 11/10/19 Unknown Rx [Novolog Mix 70-30 Flexpen] Gabapentin 300 mg PO BID #60 cap 05/07/20 Unknown Rx Acetaminophen/Codeine [Tylenol 1 tab PO Q6H PRN #12 tab 10/04/21 Unknown Rx /Codeine # 3 tab] Sertraline [Zoloft] 50 mg PO QDAY #30 tablet 10/04/21 Unknown Rx traZODone [Desyrel] 100 mg PO QHS #20 tablet 10/04/21 Unknown Rx Allergies Allergy/AdvReac Type Severity Reaction Status Date / Time cyclobenzaprine Allergy Unknown Verified 10/15/20 13:04 [From Flexeril] ED Review of Systems ROS: Stated complaint: BODY PAIN,COUGHING Other details as noted in HPI Comment: All other systems reviewed and negative Constitutional: denies: chills, fever Eyes: denies: eye pain, eye discharge, vision change ENT: denies: ear pain, throat pain, dental pain, hearing loss, epistaxis, congestion Respiratory: denies: cough, shortness of breath, SOB with exertion, SOB at rest, wheezing Cardiovascular: denies: chest pain, palpitations, syncope, paroxysmal nocturnal dyspnea Gastrointestinal: denies: abdominal pain, nausea, diarrhea, constipation, hematemesis, melena, hematochezia Genitourinary: denies: urgency, dysuria, discharge Musculoskeletal: arthralgia, myalgia. denies: back pain, joint swelling Skin: denies: rash, lesions, change in color, change in hair/nails, pruritus Neurological: denies: headache, weakness, paresthesias, abnormal gait, vertigo Psychiatric: denies: anxiety, depression, auditory hallucinations, visual hallucinations, homicidal thoughts, suicidal thoughts Hematological/Lymphatic: denies: easy bleeding, easy bruising, swollen glands ED Past Medical Hx - Past Medical History Hx Diabetes: Yes Hx Psychiatric Treatment: Yes (anxiety depression) Additional medical history: neuropathy - Social History Smoking Status: Never Smoker Substance Use Type: None - Medications Home Medications: Home Medications Medication Instructions Recorded Confirmed Last Taken Type Insulin Aspart Prot/Insuln Asp 10 unit SQ TID #5 pen 11/10/19 Unknown Rx [Novolog Mix 70-30 Flexpen] Gabapentin 300 mg PO BID #60 cap 05/07/20 Unknown Rx Acetaminophen/Codeine [Tylenol 1 tab PO Q6H PRN #12 tab 10/04/21 Unknown Rx /Codeine # 3 tab] Sertraline [Zoloft] 50 mg PO QDAY #30 tablet 10/04/21 Unknown Rx traZODone [Desyrel] 100 mg PO QHS #20 tablet 10/04/21 Unknown Rx ED Physical Exam - General Limitations: Language Barrier General appearance: alert, in no apparent distress - Head Head exam: Present: atraumatic, normocephalic, normal inspection - Neck Neck exam: Present: normal inspection, full ROM. Absent: meningismus - Respiratory Respiratory exam: Present: normal lung sounds bilaterally. Absent: respiratory distress, wheezes, rales, rhonchi - Cardiovascular Cardiovascular Exam: Present: regular rate, normal rhythm, normal heart sounds - Extremities Exam Extremities exam: Present: normal inspection, full ROM, tenderness (diffuse muscle ttp bilateral thigh and lower leg ), normal capillary refill. Absent: pedal edema, calf tenderness - Neurological Exam Neurological exam: Present: alert, oriented X3, CN II-XII intact, normal gait. Absent: motor sensory deficit - Psychiatric Psychiatric exam: Present: normal affect, normal mood - Skin Skin exam: Present: intact ED Course Vital Signs 10/04/21 11:31 Temperature 98.2 F Pulse Rate 73 Respiratory 14 Rate Blood Pressure 131/74 [Left] O2 Sat by Pulse 100 Oximetry Critical care attestation.: If time is entered above; I have spent that time in minutes in the direct care of this critically ill patient, excluding procedure time. ED Disposition Clinical Impression: DM neuropathy, painful, Medication refill Disposition: HOME / SELF CARE / HOMELESS Is pt being admited?: No Does the pt Need Aspirin: No Condition: Stable Instructions: Diabetes Mellitus Type 2 in Adults (ED), Diabetic Neuropathy, Medicine Refill at the Emergency Department Additional Instructions: I recommend he continue taking the gabapentin. Take the Tylenol threes for additional pain control. Most importantly recommend that she be compliant with your diabetic medication to help better control your sugars, and also monitor your food intake and try and avoid any sweets, and white carbs. You will need to follow-up with your primary care doctor for continued care. A primary care doctor will be listed on your discharge instructions. I would recommend that you call to make an appointment for either this week or next week. Return if your symptoms changes or worsens in any way. Prescriptions: traZODone [Desyrel] 100 mg PO QHS #20 tablet Acetaminophen/Codeine [Tylenol /Codeine # 3 tab] 1 tab PO Q6H PRN #12 tab PRN Reason: Pain , Severe (7-10) Sertraline [Zoloft] 50 mg PO QDAY #30 tablet Referrals: PRIMARY MD DANIEL [Primary Care Provider] - 3-5 Days YOHANA BERNAL MD [Staff Physician] - 3-5 Days BREANNE MADDEN MD [Staff Physician] - 3-5 Days [facility] [Provider Group] - 3-5 Days Time of Disposition: 13:08
== END 2021-10-04 14:02 | disposition home or self-care (01) ==
LOC: ED 11:04
DX: E11.40 Type 2 diabetes mellitus with diabetic neuropathy, unspecified (principal); Z76.0 Encounter for issue of repeat prescription; Z88.8 Allergy status to other drugs, medicaments and biological substances; F41.9 Anxiety disorder, unspecified
CPT/HCPCS: 99282